=== PATIENT | male | born 1940 | race Caucasian/White ===

== ENCOUNTER 2022-07-27 07:28 | Emergency (ER) | payer MEDICAID ==
[~2022-07-27] VITALS: Ht 162.6 cm; Wt 66.7 kg
[2022-07-27 07:30] VITALS: BP 128/87
--- NOTE | 2022-07-27 07:35 | NUR ---
PT W/C WHEELCHAIR ASSISTED TO BED 6
--- NOTE | 2022-07-27 07:39 | NUR ---
MD SKINNER AT BEDSIDE FOR EVALUATION
--- NOTE | 2022-07-27 07:47 | NUR ---
ACCU CHECK FINGER STICK = [id number]. NOTIFIED
--- NOTE | 2022-07-27 08:07 | NUR ---
Jh KAUR C/O OF SOB, CP SINCE YESTERDAY. DR SKINNER AT BEDSIDE. MSE COMPLETED.
[2022-07-27 08:21] LABS: BASOPHILS # (AUTO) 0.1 K/uL (0.00-0.22); BASOPHILS % (AUTO) 0.6 % (0.0-2.0); EOSINOPHILS % (AUTO) 0.1 % (0.0-4.0); HEMATOCRIT 41.7 % (36-52); HEMOGLOBIN 13.8 g/dL (12.0-18.0); LYMPHOCYTES # (AUTO) 1.7 K/uL (2.0-11.5); LYMPHOCYTES % (AUTO) 11.1 % (20.5-51.1); MEAN CORPUSCULAR HEMOGLOBIN 28 pg (27-31); MEAN CORPUSCULAR HGB CONC 33 g/dL (33-37); MEAN CORPUSCULAR VOLUME 85.7 fL (80-94); MONOCYTES # (AUTO) 0.9 K/uL (0.8-1.0); MONOCYTES % (AUTO) 5.7 % (1.7-9.3); NEUTROPHILS # (AUTO) 12.9 K/uL (1.8-7.7); NEUTROPHILS % (AUTO) 82.5 % (42.2-75.2); PLATELET COUNT (AUTO) 162 K/uL (140-450); RED BLOOD CELL COUNT(AUTO) 4.86 MIL/uL (4.20-6.10); RED CELL DISTRIBUTION WIDTH 13.6 % (11.6-13.7); WHITE BLOOD COUNT (AUTO) 15.6 K/uL (4.8-10.8)
[2022-07-27 08:47] LABS: BILIRUBIN,URINE NEGATIVE (NEGATIVE); BLOOD, URINE 2+ (NEGATIVE); COLOR,URINE YELLOW (YELLOW); LEUKOCYTE ESTERASE ,URINE NEGATIVE (NEGATIVE); NITRITE, URINE NEGATIVE (NEGATIVE); UGLUCOSE NEGATIVE (NEGATIVE)
[2022-07-27 08:50] LABS: ALBUMIN 3.2 g/dL (3.4-5.0); ANION GAP 17.6 (8-16); ASPARTATE AMINOTRANSFERASE 31 U/L (15-37); CARBON DIOXIDE 20.5 mmol/L (21-32); CHLORIDE 96 mmol/L (98-107); CREATININE 1.4 mg/dL (0.6-1.3); GLUCOSE 276 mg/dL (74-106); POTASSIUM 4.1 mmol/L (3.5-5.1); SODIUM SERUM 130 mmol/L (136-145); TOTAL BILIRUBIN 0.6 mg/dL (0.0-1.0); UREA NITROGEN, BLOOD 23 mg/dL (7-18)
[2022-07-27] MEDS ORDERED: PIPERACILLIN/TAZOBACTAM 3.375 GM VIAL IV ONE (08:58)
[2022-07-27 09:06] LABS: APPEARANCE,URINE HAZY (CLEAR)
[2022-07-27] MEDS: PIPERACILLIN/TAZOBACTAM 3.375 GM in DEXTROSE 5% 50 ML IV ONE (09:09)
[2022-07-27 09:14] LABS: URINE AMORPHOUS URATE 1+ /HPF (None Seen)
[2022-07-27] MEDS: ASPIRIN 325 MG TAB PO ONE (09:21)
[2022-07-27] MEDS ORDERED: hePARIN / DEXT 5% PREMIX 250 ML IV ONE (09:40)
[2022-07-27] MEDS ORDERED: HEPARIN PER PHARMACY MC PRN (09:40)
[2022-07-27 10:00] LABS: PROTHROMBIN TIME 9.7 secs (10.8-13.4)
[2022-07-27] MEDS: MAG SULF 2000 MG/WATER PREMIX 50 ML IV ONE (10:39)
--- NOTE | 2022-07-27 10:45 | NUR ---
MD ORDERED PT. TRANSFERED FOR N-STEMI. PT. WITHOUT ACUTE DISTRESS. ON BI-PAP. TRANSFER PROCESS STARTED
[2022-07-27] MEDS: hePARIN / DEXT 5% PREMIX 250 ML IV SCH (11:07)
[2022-07-27] MEDS: FUROSEMIDE 40 MG/4 ML VIAL IVP ONE (11:19)
--- NOTE | 2022-07-27 11:19 | NUR ---
PT.'S FAMILY CALLED AT [phone] AND LEFT A MESSAGE FOR A RETURN CALL. NO SPECIFIC INFORMATION LEFT ON VOICE MAIL
--- NOTE | 2022-07-27 11:25 | NUR ---
DISPO AND DECISION MAKING, TRANSFER TO [facility], PATIENT RPORT GIVEN TO CHRISTA REESE.
--- NOTE | 2022-07-27 11:27 | NUR ---
[facility] ARRIVED TO [facility] FOR N-STEMI TRANSFER
--- NOTE | 2022-07-27 11:38 | NUR ---
PATIENT AND NIECE UPDATED OF PLAN TO TRANSFER TO [facility] FOR HLOC ACCORDINGLY.
--- NOTE | 2022-07-27 11:38 | NUR ---
'HOWARDN Addendum: 07/27/22 at 1138 by REED AVANI
--- NOTE | 2022-07-27 11:40 | NUR ---
PT. LEFT ER WITH TRANSFER TO [facility] ER FOR N-STEMI TRANSFER. ALL PAPERWORK SENT. PT.'S FAMILY AT BEDSIDE.
[2022-07-27 11:49] VITALS: BP 131/60
== END 2022-07-27 11:49 | disposition short-term general hospital (02) ==
LOC: MED 07:28 → EDBD 07:28 → MED 11:49
DX: I21.4 Non-ST elevation (NSTEMI) myocardial infarction (principal); J96.01 Acute respiratory failure with hypoxia; J81.1 Chronic pulmonary edema; E87.20 Acidosis, unspecified; N28.9 Disorder of kidney and ureter, unspecified; R07.9 Chest pain, unspecified; R06.02 Shortness of breath; E11.9 Type 2 diabetes mellitus without complications; Z20.822 Contact with and (suspected) exposure to COVID-19
CPT/HCPCS: 36415; 71045; 71275; 80053; 81001; 83605; 83735; 83880; 84484; 85025; 85610; 85730; 87040; 87086; 87426; 87804; 93005; 94660; 96365; 96367; 96368; 96375; 99291; 99292; J1644; J1940; J2543; J3475; Q9967